=== PATIENT | female | born 2000 | race Caucasian/White ===

== ENCOUNTER → 2021-11-30 | Outpatient (CLI) | payer OTHER ==
[~2021-11-30] MED LIST: COLACE100 MG PO; IBUPROFEN600 MG PO; NORCO 10-325 T1 EACH PO
== END ==
LOC: NM 12:58
DX: R10.11 Right upper quadrant pain (principal); R11.0 Nausea; R19.7 Diarrhea, unspecified
CPT/HCPCS: 78226; A9537

== ENCOUNTER 2021-12-03 22:58 | Emergency (ER) | payer OTHER ==
[2021-12-04 00:46] LABS: HEMOGLOBIN 12.4 gm/dl (12.3-15.3); RED BLOOD COUNT 4.55 M/UL (4.00-5.10); WHITE BLOOD COUNT 8.7 K/UL (4.5-11.0)
[2021-12-04 01:12] LABS: BUN/CREATININE RATIO 12 (0-10)
== END 2021-12-04 03:45 | disposition home or self-care (01) ==
LOC: ER1 22:58
DX: R07.9 Chest pain, unspecified (principal); R06.02 Shortness of breath; J45.909 Unspecified asthma, uncomplicated; Z88.0 Allergy status to penicillin
CPT/HCPCS: 71045; 80053; 82550; 82553; 84484; 85025; 85379; 85610; 85730; 93005; 99285

== ENCOUNTER → 2021-12-19 | Day surgery (SDC) | payer OTHER ==
[~2021-12-19] MED LIST changes: +BUSPAR 10MG10 MG PO; +HYDROCODON-ACE1 EAC4 PO; +PRILOSEC OTC20 MG PO
== END | disposition home or self-care (01) ==
LOC: OR 08:15
DX: K81.1 Chronic cholecystitis (principal); K82.8 Other specified diseases of gallbladder; E66.9 Obesity, unspecified; Z88.0 Allergy status to penicillin; Z88.8 Allergy status to other drugs, medicaments and biological substances
CPT/HCPCS: 84703; C1729; J1100; J1170; J1885; J2001; J2250; J2405; J2704; J3010